=== PATIENT | female | born 1960 | race Caucasian/White ===

== ENCOUNTER 2022-07-26 09:01 | Outpatient (CLI) | payer OTHER ==
[2022-07-26] MEDS ORDERED: Iopamidol-370 76% 500 ML 1 ML ONE (09:30)
== END 2022-07-26 09:02 | disposition home or self-care (01) ==
LOC: CT 09:01
PROVIDERS: ATTEND Family Medicine
DX: R19.02 Left upper quadrant abdominal swelling, mass and lump (principal)
CPT/HCPCS: 74160; 82565; Q9967